=== PATIENT | female | born 1940 | race Caucasian/White ===

== ENCOUNTER 2017-04-30 15:40 | Emergency (ER) | payer MEDICARE ==
[~2017-04-30] VITALS: Ht 160 cm; Wt 63.5 kg
[2017-04-30] MEDS ORDERED: ACETAMINOPHEN ES 500 MG TABLET PO ONE (17:15)
[2017-04-30] MEDS ORDERED: ACETAMINOPHEN ES 500 MG TABLET ONE (17:39)
--- NOTE | 2017-04-30 17:45 | NUR ---
DR HANKINS SPOKE WITH PATIENT MADE HER AWARE OF TEST RESULTS WILL BE DC HOME.
[2017-04-30 17:52] VITALS: BP 147/81
--- NOTE | 2017-04-30 17:54 | NUR ---
Patient discharged to home in stable conditon. Written and verbal after care instructions given. Patient verbalizes understanding of instructions.
== END 2017-04-30 17:58 | disposition home or self-care (01) ==
LOC: ER 15:41
DX: S52.501A Unspecified fracture of the lower end of right radius, initial encounter for closed fracture (principal); G35 Multiple sclerosis; I10 Essential (primary) hypertension; E78.5 Hyperlipidemia, unspecified; Z88.0 Allergy status to penicillin; Z88.2 Allergy status to sulfonamides; Y92.89 Other specified places as the place of occurrence of the external cause; W01.0XXA Fall on same level from slipping, tripping and stumbling without subsequent striking against object, initial encounter; Y93.89 Activity, other specified; Y99.8 Other external cause status
CPT/HCPCS: 73110; A4663